=== PATIENT | male | born 1950 | race American Indian/Alaskan Native ===

== ENCOUNTER 2016-07-23 05:55 | Inpatient (IN) | payer MEDICARE ==
[2016-07-23 06:49] LABS: Basophils % (Auto) 0.5 % (0.0-1.8); Eosinophils % (Auto) 0.7 % (0.0-4.3); Hematocrit 40.8 % (35.5-45.6); Hemoglobin 13.6 gm/dl (11.8-15.2); Mean Corpuscular HGB Conc 33 % (32-34); Mean Corpuscular Hemoglobin 29 pg (28-32); Mean Corpuscular Volume 88 fl (84-94); Platelet Count 265 K/mm3 (140-440); Red Blood Count 4.67 M/mm3 (3.65-5.03); Red Cell Distribution Width 14.4 % (13.2-15.2); White Blood Count 12.3 K/mm3 (4.5-11.0)
[2016-07-23 07:08] LABS: Anion Gap 20 mmol/L; BUN/Creatinine Ratio 14.44; Blood Urea Nitrogen 13 mg/dL (9-20); Calcium 9.1 mg/dL (8.4-10.2); Carbon Dioxide 26 mmol/L (22-30); Chloride 96.8 mmol/L (98-107); Glucose 99 mg/dL (75-100); Sodium 139 mmol/L (137-145)
--- NOTE | 2016-07-23 11:20 | Emergency Department Report ---
ED Chest Pain HPI - General Chief Complaint: Chest Pain Stated Complaint: CHEST/SIDE PAIN Time Seen by Provider: 07/23/16 11:02 Source: patient Mode of arrival: Ambulatory Limitations: No Limitations - History of Present Illness MD Complaint: chest pain -: month(s) Onset: during rest Pain Location: substernal Pain Radiation: other (sometimes involves her left shoulder/upper arm) Severity: mild Severity scale (0 -10): 0 Quality: aching Consistency: intermittent Improves With: nothing Worsens With: nothing re: other (LUQ and L flank pain radiating). denies: nausea, vomting, diaphoresis, dyspnea, sense of impending doom Other Symptoms: cough. denies: fever, syncope, rash, acid taste in mouth, leg swelling Treatments Prior to Arrival: none Aspirin use within the Past 7 Days: (0) No - Related Data On Oral Contraceptives: No Home Medications Medication Instructions Recorded Confirmed Last Taken Atenolol [Tenormin] 50 mg PO DAILY 01/10/15 07/23/16 01/10/15 Verapamil [Calan] 120 mg PO TID 01/10/15 07/23/16 01/10/15 Previous Rx's Medication Instructions Recorded Last Taken Type ALBUTEROL NEB's [Proventil 0.083% 2.5 mg IH TID PRN #1 box 10/15/13 01/10/15 Rx NEBS] Albuterol Sulfate [Proventil HFA] 1 - 2 puff IH Q4H PRN #1 hfa.aer.ad 10/15/13 Unknown Rx Allergies Allergy/AdvReac Type Severity Reaction Status Date / Time No Known Allergies Allergy Unverified 10/15/13 08:38 SEBASTIEN score - Sebastien Score Age > 65: (1) Yes Aspirin use within the Past 7 Days: (0) No 3 or more CAD Risk Factors: (1) Yes 2 or more Angina events in past 24 hrs: (1) Yes Known CAD with more than 50% Stenosis: (0) No Elevated Cardiac Markers: (0) No ST Deviation Greater than 0.5mm: (0) No SEBASTIEN Score: 3 ED Review of Systems ROS: Stated complaint: CHEST/SIDE PAIN Other details as noted in HPI Constitutional: denies: chills, fever Eyes: denies: eye pain, eye discharge, vision change ENT: denies: ear pain, throat pain Respiratory: cough. denies: shortness of breath, wheezing Cardiovascular: chest pain. denies: palpitations Endocrine: no symptoms reported Gastrointestinal: denies: abdominal pain, nausea, diarrhea Genitourinary: denies: urgency, dysuria Musculoskeletal: denies: back pain, joint swelling, arthralgia Skin: denies: rash, lesions Neurological: denies: headache, weakness, paresthesias Psychiatric: denies: anxiety, depression Hematological/Lymphatic: denies: easy bleeding, easy bruising ED Past Medical Hx - Past Medical History Hx Hypertension: Yes (20+; no Beta blockers) Hx Liver Disease: No (FATTY LIVER) Hx Renal Disease: Yes (hx of kidney stones has had lithotripsy) Hx Arthritis: Yes (KNEES) Hx Kidney Stones: Yes Hx Asthma: Yes (uses inhaler) Additional medical history: gout - Family History Family history: CAD/IN - Social History Smoking Status: Former Smoker Substance Use Type: Alcohol - Medications Home Medications: Home Medications Medication Instructions Recorded Confirmed Last Taken Type ALBUTEROL NEB's [Proventil 0.083% 2.5 mg IH TID PRN #1 box 10/15/13 07/23/1612/18 Rx NEBS] Albuterol Sulfate [Proventil HFA] 1 - 2 puff IH Q4H PRN #1 hfa.aer.ad 10/15/13 07/23/16 Unknown Rx Atenolol [Tenormin] 50 mg PO DAILY 01/10/15 07/23/16 01/10/15 History Verapamil [Calan] 120 mg PO TID 01/10/15 07/23/16 01/10/15 History ED Physical Exam - General Limitations: No Limitations General appearance: alert, in no apparent distress - Head Head exam: Present: atraumatic, normocephalic - Eye Eye exam: Present: normal appearance. Absent: scleral icterus - ENT ENT exam: Present: normal exam, mucous membranes moist - Neck Neck exam: Present: normal inspection - Respiratory Respiratory exam: Present: normal lung sounds bilaterally. Absent: respiratory distress - Cardiovascular Cardiovascular Exam: Present: regular rate, normal rhythm. Absent: systolic murmur, diastolic murmur, rubs, gallop - GI/Abdominal GI/Abdominal exam: Present: soft, normal bowel sounds. Absent: distended, tenderness, guarding, rebound, rigid - Rectal Rectal exam: Present: deferred - Extremities Exam Extremities exam: Present: normal inspection - Back Exam Back exam: Present: normal inspection - Neurological Exam Neurological exam: Present: alert, oriented X3, CN II-XII intact. Absent: motor sensory deficit - Psychiatric Psychiatric exam: Present: normal affect, normal mood - Skin Skin exam: Present: warm, dry, intact, normal color. Absent: rash ED Course Vital Signs 07/23/16 07/23/16 07/23/16 06:12 10:22 10:26 Temperature 98.1 F 98.8 F Pulse Rate 81 78 80 Respiratory 20 16 Rate Blood Pressure 139/89 Blood Pressure 163/94 [Left] O2 Sat by Pulse 98 97 Oximetry 07/23/16 07/23/16 07/23/16 10:30 10:40 10:50 Temperature Pulse Rate 78 76 75 Respiratory 22 23 19 Rate Blood Pressure 154/93 154/93 159/93 Blood Pressure [Left] O2 Sat by Pulse 100 Oximetry 07/23/16 07/23/16 07/23/16 11:00 11:10 11:11 Temperature Pulse Rate 76 79 75 Respiratory 22 20 Rate Blood Pressure 158/91 158/91 Blood Pressure [Left] O2 Sat by Pulse Oximetry 07/23/16 07/23/16 11:20 11:30 Temperature Pulse Rate 79 82 Respiratory 17 25 H Rate Blood Pressure 152/91 148/91 Blood Pressure [Left] O2 Sat by Pulse Oximetry - Reevaluation(s) Reevaluation #1: Discussed CT findings with Dr. Hassan. He is confident this is pancreatitis. He went to consider anything else on the differential. Patient continues to be clinically stable. He is admitted by Dr. Chavez for further care and evaluation. 07/23/16 15:03 ED Medical Decision Making - Lab Data Result diagrams: 07/23/16 06:33 07/23/16 06:33 Laboratory Results - last 24 hr 07/23/16 07/23/16 07/23/16 06:33 06:33 09:26 WBC 12.3 H RBC 4.67 Hgb 13.6 Hct 40.8 MCV 88 MCH 29 MCHC 33 RDW 14.4 Plt Count 265 Lymph % (Auto) 22.4 Bureau % (Auto) 6.7 Eos % (Auto) 0.7 Baso % (Auto) 0.5 Lymph # 2.8 Bureau # 0.8 Eos # 0.1 Baso # 0.1 Seg Neutrophils % 69.7 Seg Neutrophils # 8.6 H Sodium 139 Potassium 4.0 Chloride 96.8 L Carbon Dioxide 26 Anion Gap 20 BUN 13 Creatinine 0.9 Estimated GFR > 60 BUN/Creatinine Ratio 14.44 Glucose 99 Calcium 9.1 Troponin T < 0.010 < 0.010 Laboratory Results - last 24 hr 07/23/16 07/23/16 07/23/16 06:33 06:33 09:26 WBC 12.3 H RBC 4.67 Hgb 13.6 Hct 40.8 MCV 88 MCH 29 MCHC 33 RDW 14.4 Plt Count 265 Lymph % (Auto) 22.4 Bureau % (Auto) 6.7 Eos % (Auto) 0.7 Baso % (Auto) 0.5 Lymph # 2.8 Bureau # 0.8 Eos # 0.1 Baso # 0.1 Seg Neutrophils % 69.7 Seg Neutrophils # 8.6 H Sodium 139 Potassium 4.0 Chloride 96.8 L Carbon Dioxide 26 Anion Gap 20 BUN 13 Creatinine 0.9 Estimated GFR > 60 BUN/Creatinine Ratio 14.44 Glucose 99 Calcium 9.1 Troponin T < 0.010 < 0.010 Laboratory Results - last 24 hr 07/23/16 07/23/16 07/23/16 06:33 06:33 09:26 WBC 12.3 H RBC 4.67 Hgb 13.6 Hct 40.8 MCV 88 MCH 29 MCHC 33 RDW 14.4 Plt Count 265 Lymph % (Auto) 22.4 Bureau % (Auto) 6.7 Eos % (Auto) 0.7 Baso % (Auto) 0.5 Lymph # 2.8 Bureau # 0.8 Eos # 0.1 Baso # 0.1 Seg Neutrophils % 69.7 Seg Neutrophils # 8.6 H Sodium 139 Potassium 4.0 Chloride 96.8 L Carbon Dioxide 26 Anion Gap 20 BUN 13 Creatinine 0.9 Estimated GFR > 60 BUN/Creatinine Ratio 14.44 Glucose 99 Calcium 9.1 Troponin T < 0.010 < 0.010 Lipase Urine Color Urine Turbidity Urine pH Ur Specific [place] Urine Protein Urine Glucose (UA) Urine Ketones Urine Blood Urine Nitrite Urine Bilirubin Urine Urobilinogen Ur Leukocyte Esterase Urine WBC (Auto) Urine RBC (Auto) U Epithel Cells (Auto) Urine Mucus 07/23/16 07/23/16 07/23/16 12:12 12:56 Unknown WBC RBC Hgb Hct MCV MCH MCHC RDW Plt Count Lymph % (Auto) Bureau % (Auto) Eos % (Auto) Baso % (Auto) Lymph # Bureau # Eos # Baso # Seg Neutrophils % Seg Neutrophils # Sodium Potassium Chloride Carbon Dioxide Anion Gap BUN Creatinine Estimated GFR BUN/Creatinine Ratio Glucose Calcium Troponin T < 0.010 Lipase 80 H Urine Color Yellow Urine Turbidity Clear Urine pH 5.0 Ur Specific Sinclair 1.023 Urine Protein <15 mg/dl Urine Glucose (UA) Neg Urine Ketones Neg Urine Blood Sm Urine Nitrite Neg Urine Bilirubin Neg Urine Urobilinogen < 2.0 Ur Leukocyte Esterase Neg Urine WBC (Auto) < 1.0 Urine RBC (Auto) 3.0 U Epithel Cells (Auto) < 1.0 Urine Mucus 2+ - EKG Data -: EKG Interpreted by Me EKG shows normal: sinus rhythm, axis, intervals, QRS complexes, ST-T waves Rate: normal - EKG Data Interpretation: no acute changes - Radiology Data Radiology results: report reviewed interpreted by me: Discussed with radiologist. Pancreatitis of the tail pancreas. Critical care attestation.: If time is entered above; I have spent that time in minutes in the direct care of this critically ill patient, excluding procedure time. ED Disposition Clinical Impression: Pancreatitis Qualifiers: Chronicity: acute Pancreatitis type: other Acute pancreatitis complication: unspecified Qualified Code(s): K85.80 - Other acute pancreatitis without necrosis or infection Disposition: OP ADMITTED IP TO THIS HOSP Is pt being admited?: Yes Does the pt Need Aspirin: Yes Condition: Stable Referrals: PRIMARY CARE, [Primary Care Provider] - 3-5 Days Time of Disposition: 15:07
[2016-07-23] MEDS ORDERED: TORADOL IV ONE (11:26)
--- NOTE | 2016-07-23 13:00 | Cat Scan Report ---
CT ABDOMEN AND PELVIS WITHOUT CONTRAST INDICATION: Left flank pain. History of kidney stones. COMPARISON: None similar. FINDINGS: Noncontrast abdomen and pelvis CT performed. LUNG BASES: Nonspecific distal esophageal wall thickening, not excluded for gastroesophageal reflux and/or hiatal hernia, amongst others. Slight increased AP chest diameter and subtle groundglass opacities/dependent atelectasis at the extreme right lung base, axial series 2, image 41. No effusions. ABDOMEN: Please note that sensitivity to detect small visceral lesions is limited due to the absence of intravenous or oral contrast. Diffuse fatty hepatic infiltration with right hepatic lobe approximately 20 cm in midclavicular length. Small right hepatic calcified granuloma. Nonobstructing bilateral renal calculi, at least 2 tiny on the right inferiorly measuring 2-3 mm while a large left lower renal pole calculus is approximately 1.5 cm. Mild fat stranding about the pancreatic tail also seen. No focal fluid collection. Small splenule. Otherwise grossly unremarkable unenhanced liver, spleen, remainder pancreas, adrenals, nonaneurysmal abdominal aorta with few atherosclerotic calcifications and IVC. Nonopacified GI tract evaluation limited, though grossly nonobstructive. Normal appendix. Usual colonic stool. PELVIS: Slightly enlarged prostate may be correlated for clinically and with PSA. Few small pelvic phleboliths and a tiny midline prostatic calcification noted. Grossly unremarkable unenhanced urinary bladder, seminal vesicles and rectosigmoid. No free fluid or significant adenopathy. Slight bony degenerative changes. CONCLUSION: 1. Acute pancreatitis suspected involving the pancreatic tail, as described. Please also correlate clinically and with laboratory values. 2. Various other incidental findings, including fatty enlarged liver and nonobstructing bilateral nephrolithiasis, amongst others, as described. Thank you for the opportunity to participate in this patient's care.
[2016-07-23 13:13] LABS: Bilirubin,Urine NEG (Negative); Blood,Urine SM (Negative); Ketones,Urine NEG (Negative); Leukocyte Esterase,Urine NEG (Negative); Mucus,Urine 2+ /HPF; Nitrite,Urine NEG (Negative); Protein,Urine <15 mg/dL mg/dL (Negative); Urobilinogen,Urine < 2.0 mg/dL (<2.0); WBC,Urine < 1.0 /HPF (0.0-6.0)
--- NOTE | 2016-07-23 13:22 | Admit Criteria Form ---
Admission Criteria Documentation: PANCREATITIS Clinical Indications for Admission to Inpatient Care (Place 'X' for any and all applicable criteria): Admission is indicated for ANY ONE of the following (1)(2)(3)(4): [X ]I. Acute pancreatitis[A] as indicated by 2 or more of the following: [ X]a) Abdominal pain (eg, epigastric, left upper quadrant) [ ]b) Serum amylase or serum lipase greater than 3 times the upper limit of normal [X ]c) Characteristic findings from abdominal imaging (eg, pancreatic inflammation, pancreatic necrosis, peripancreatic fluid collection)[B] [ ]II. Pancreatitis (acute or chronic) requiring inpatient care as indicated by 1 or more of the following: [ ]a) Inability to maintain oral hydration Hypoxemia [ ]b) Evidence of infection (eg, fever, peripancreatic abscess) [ ]c) Severe pain requiring acute inpatient management [ ]d) Hemodynamic instability [ ]e) Hypoxemia [ ]f) Acute renal failure [ ]g) Severe electrolyte abnormalities Extended stay beyond goal length of stay may be needed for (1)(11) [ ]a) Severe acute pancreatitis (10)(19) [ ]b) Persistent symptoms, ascites, or pleural effusion [ ]c) Abdominal compartment syndrome (10) [ ]d) Late complications [ ]e) Acute renal failure (27) [ ]f) Gallstones in gallbladder The original [employer] content created by [employer] has been revised. The portions of the content which have been revised are identified through the use of italic text or in bold,and [facility] has neither reviewed nor approved the modified material.All other unmodified content is copyright [employer]. Please see references footnoted in the original [employer] edition 2016 Admission Criteria Met: Yes
--- NOTE | 2016-07-23 14:14 | XRay Report ---
PORTABLE CHEST: INDICATION: Hypertension. COMPARISON: 10/15/2013 FINDINGS: Portable, frontal chest radiograph again demonstrates normal cardiomediastinal silhouette and clear lungs. Thoracic spondylosis. EKG leads. CONCLUSION: No acute disease in the chest, stable. Thank you for the opportunity to participate in this patient's care.
--- NOTE | 2016-07-23 15:03 | History and Physical Report ---
History of Present Illness Date of examination: 07/23/16 History of present illness: 66-year-old male presents to Hospital complaining of chest pain left upper quadrant pain, epigastric pain. Patient stated started light about 3 days ago, but progressively got worse. Patient denies any nausea vomiting diarrhea. Patient denies any blood in his stools. Patient states there had an episode like this before. He described abdominal pain as sharp in nature and nonradiating on and off. No alleviating factors. Patient state is aggravated by eating food. She denies any palpitation no fever no chills Past History Past Medical History: hypertension Medications and Allergies Allergies Allergy/AdvReac Type Severity Reaction Status Date / Time No Known Allergies Allergy Unverified 10/15/13 08:38 Home Medications Medication Instructions Recorded Confirmed Last Taken Type ALBUTEROL NEB's [Proventil 0.083% 2.5 mg IH TID PRN #1 box 10/15/13 07/23/1612/18 Rx NEBS] Albuterol Sulfate [Proventil HFA] 1 - 2 puff IH Q4H PRN #1 hfa.aer.ad 10/15/13 07/23/16 Unknown Rx Atenolol [Tenormin] 50 mg PO DAILY 01/10/15 07/23/16 01/10/15 History Verapamil [Calan] 120 mg PO TID 01/10/15 07/23/16 01/10/15 History Review of Systems Cardiovascular: chest pain Gastrointestinal: abdominal pain Exam - Constitutional Vitals: Temp Pulse Resp BP Pulse Ox 98.8 F 82 25 H 148/91 100 07/23/16 10:22 07/23/16 11:30 07/23/16 11:30 07/23/16 11:30 07/23/16 10:40 General appearance: Present: mild distress - EENT Eyes: Present: PERRL, EOM intact ENT: hearing intact, clear oral mucosa - Neck Neck: Present: supple, normal ROM - Respiratory Respiratory effort: normal Respiratory: bilateral: CTA - Cardiovascular Rhythm: regular Heart Sounds: Present: S1 & S2 - Extremities Extremities: no ischemia, No edema - Abdominal General gastrointestinal: Present: soft, tender, non-distended, normal bowel sounds Localized gastrointestinal: tender: LUQ, epigastric periumbilical Results - Labs CBC & Chem 7: 07/23/16 06:33 02/17/17 06:33 Labs: Laboratory Last Values WBC 12.3 K/mm3 (4.5-11.0) H 07/23/16 06:33 RBC 4.67 M/mm3 (3.65-5.03) 07/23/16 06:33 Hgb 13.6 gm/dl (11.8-15.2) 07/23/16 06:33 Hct 40.8 % (35.5-45.6) 07/23/16 06:33 MCV 88 fl (84-94) 07/23/16 06:33 MCH 29 pg (28-32) 07/23/16 06:33 MCHC 33 % (32-34) 07/23/16 06:33 RDW 14.4 % (13.2-15.2) 07/23/16 06:33 Plt Count 265 K/mm3 (140-440) 07/23/16 06:33 Lymph % (Auto) 22.4 % (13.4-35.0) 07/23/16 06:33 [place]alier % (Auto) 6.7 % (0.0-7.3) 07/23/16 06:33 Eos % (Auto) 0.7 % (0.0-4.3) 07/23/16 06:33 Baso % (Auto) 0.5 % (0.0-1.8) 07/23/16 06:33 Lymph # 2.8 K/mm3 (1.2-5.4) 07/23/16 06:33 Cavalier # 0.8 K/mm3 (0.0-0.8) 07/23/16 06:33 Eos # 0.1 K/mm3 (0.0-0.4) 07/23/16 06:33 Baso # 0.1 K/mm3 (0.0-0.1) 07/23/16 06:33 Seg Neutrophils % 69.7 % (40.0-70.0) 07/23/16 06:33 Seg Neutrophils # 8.6 K/mm3 (1.8-7.7) H 07/23/16 06:33 Sodium 139 mmol/L (137-145) 07/23/16 06:33 Potassium 4.0 mmol/L (3.6-5.0) 07/23/16 06:33 Chloride 96.8 mmol/L (98-107) L 07/23/16 06:33 Carbon Dioxide 26 mmol/L (22-30) 07/23/16 06:33 Anion Gap 20 mmol/L 07/23/16 06:33 BUN 13 mg/dL (9-20) 07/23/16 06:33 Creatinine 0.9 mg/dL (0.8-1.5) 07/23/16 06:33 Estimated GFR > 60 ml/min 07/23/16 06:33 BUN/Creatinine Ratio 14.44 % 07/23/16 06:33 Glucose 99 mg/dL (75-100) 07/23/16 06:33 Calcium 9.1 mg/dL (8.4-10.2) 07/23/16 06:33 Troponin T < 0.010 ng/mL (0.00-0.029) 07/23/16 12:12 Lipase 80 units/L (13-60) H 07/23/16 12:56 Urine Color Yellow (Yellow) 07/23/16 Unknown Urine Turbidity Clear (Clear) 07/23/16 Unknown Urine pH 5.0 (5.0-7.0) 07/23/16 Unknown Ur Specific [place] 1.023 (1.003-1.030) 07/23/16 Unknown Urine Protein <15 mg/dl mg/dL (Negative) 07/23/16 Unknown Urine Glucose (UA) Neg mg/dL (Negative) 07/23/16 Unknown Urine Ketones Neg mg/dL (Negative) 07/23/16 Unknown Urine Blood Sm (Negative) 07/23/16 Unknown Urine Nitrite Neg (Negative) 07/23/16 Unknown Urine Bilirubin Neg (Negative) 07/23/16 Unknown Urine Urobilinogen < 2.0 mg/dL (<2.0) 07/23/16 Unknown Ur Leukocyte Esterase Neg (Negative) 07/23/16 Unknown Urine WBC (Auto) < 1.0 /HPF (0.0-6.0) 07/23/16 Unknown Urine RBC (Auto) 3.0 /HPF (0.0-6.0) 07/23/16 Unknown U Epithel Cells (Auto) < 1.0 /HPF (0-13.0) 07/23/16 Unknown Urine Mucus 2+ /HPF 02/17/17 Unknown Assessment and Plan - Patient Problems (1) Pancreatitis Current Visit: Yes Status: Acute Qualifiers: Chronicity: acute Pancreatitis type: other Acute pancreatitis complication: unspecified Qualified Code(s): K85.80 - Other acute pancreatitis without necrosis or infection Plan to address problem: Patient CT scan the abdomen which showed acute pancreatitis of the pancreatic tail. Patient will be placed on bowel rest IV fluid hydration adequate pain control. Patient also will be placed on IV PPI (2) GERD (gastroesophageal reflux disease) Current Visit: No Status: Acute Qualifiers: Esophagitis presence: E
[2016-07-23] MEDS ORDERED: ZOFRAN IV PRN (15:04)
[2016-07-23] MEDS ORDERED: TYLENOL PO PRN (15:04)
[2016-07-23] MEDS ORDERED: DULCOLAX PR PRN (15:04)
[2016-07-23] MEDS ORDERED: MILK OF MAGNESIA PO PRN (15:04)
[2016-07-23] MEDS ORDERED: MORPHINE IV PRN (15:04)
[2016-07-23] MEDS ORDERED: BABY ASPIRIN PO ONE (15:08)
--- NOTE | 2016-07-23 15:11 | Emergency Department Report ---
Blank Doc - Documentation Documentation: EKG normal sinus rhythm at 77. Normal axis normal repolarization Chest x-ray no acute process
[2016-07-23] MEDS ORDERED: LOVENOX SUB-Q SCH ×2 (16:00)
[2016-07-23] MEDS: LOVENOX SUB-Q SCH (17:08)
[2016-07-23] MEDS: D5NS 1,000 ML IV SCH (17:09)
[2016-07-23] MEDS: PROTONIX IV SCH (21:51)
[2016-07-24] MEDS: D5NS 1,000 ML IV SCH ×2 (00:51→09:42)
[2016-07-24 06:50] LABS: Basophils % (Auto) 0.5 % (0.0-1.8); Eosinophils % (Auto) 1.5 % (0.0-4.3); Hematocrit 36.2 % (35.5-45.6); Mean Corpuscular HGB Conc 33 % (32-34); Mean Corpuscular Hemoglobin 29 pg (28-32); Mean Corpuscular Volume 88 fl (84-94); Platelet Count 207 K/mm3 (140-440); Red Blood Count 4.12 M/mm3 (3.65-5.03); Red Cell Distribution Width 14.1 % (13.2-15.2)
[2016-07-24 07:21] LABS: Alanine Aminotransferase 40 units/L (7-56); Albumin 3.3 g/dL (3.9-5); Albumin/Globulin Ratio 1.4 %; Alkaline Phosphatase 76 units/L (35-129); Anion Gap 16 mmol/L; BUN/Creatinine Ratio 5.71; Bilirubin,Total 1.2 mg/dL (0.1-1.2); Blood Urea Nitrogen 4 mg/dL (9-20); Calcium 8.4 mg/dL (8.4-10.2); Carbon Dioxide 27 mmol/L (22-30); Chloride 99.2 mmol/L (98-107); Glucose 119 mg/dL (75-100); Potassium 3.3 mmol/L (3.6-5.0); Sodium 139 mmol/L (137-145); Total Protein 5.7 g/dL (6.3-8.2)
[2016-07-24] MEDS ORDERED: ATIVAN IV PRN ×2 (07:43)
[2016-07-24 08:15] LABS: Magnesium 1.8 mg/dL (1.7-2.3); Phosphorous 2.4 mg/dL (2.5-4.5)
[2016-07-24] MEDS: FOLVITE PO SCH (09:42)
[2016-07-24] MEDS: PROTONIX IV SCH (09:43)
[2016-07-24] MEDS: VITAMIN B-1 PO SCH (09:44)
--- NOTE | 2016-07-24 11:12 | Gastroenterology Consultation ---
History of Present Illness - Reason for Consult Consult date: 07/24/16 Pancreatitis Requesting physician: STEVEN CARBAJAL - History of Present Illness The patient is a 66 yo male who came to the hospital for acute (3 day) onset of periumbilical and epigastric pain radiating to the LUQ. There was no V but there was N. He had never had pain like this before, and it was moderate in severity (but better after morphine in the ER). He was dx with pancreatitis based on labs and CT scan findings, but mild degree. There was no hematemesis nor melena. He does use a lot of EtOH (5 or more beers daily) and had an enlarged fatty liver on his CT scan. There is no hx of pancreatitis in the past. He has a hx of kidney but no gallbladder stones, nor is there a family hx of pancreatitis or GB disease. He has had no abdominal surgery, and denies any new medications. He takes occasional NSAIDs, but has not had PUD, and his last colonoscopy was by Dr Cruz or Anish a few years ago (and normal). Today , he wants to try a liquid diet because he feels better. He denies CP or SOB with exertion. Past History Past Medical History: COPD, hypertension Past Surgical History: No surgical history Social history: smoking, alcohol abuse Family history: no significant family history Medications and Allergies Allergies Allergy/AdvReac Type Severity Reaction Status Date / Time No Known Allergies Allergy Unverified 10/15/13 08:38 Home Medications Medication Instructions Recorded Confirmed Last Taken Type ALBUTEROL NEB's [Proventil 0.083% 2.5 mg IH TID PRN #1 box 10/15/13 07/23/1612/18 Rx NEBS] Albuterol Sulfate [Proventil HFA] 1 - 2 puff IH Q4H PRN #1 hfa.aer.[email or web address] 10/15/13 07/23/16 Unknown Rx Atenolol [Tenormin] 50 mg PO DAILY 01/10/15 07/23/16 01/10/15 History Verapamil [Calan] 120 mg PO TID 01/10/15 07/23/16 01/10/15 History Active Meds: Active Medications Acetaminophen (Tylenol) 650 mg PO Q4H PRN PRN Reason: Pain MILD(1-3)/Fever >100.5/MCCLURE Bisacodyl (Dulcolax) 10 mg TN QDAY PRN PRN Reason: Constipation unrelieved by MOM Enoxaparin Sodium (Lovenox) 40 mg SUB-Q QDAY@1600 [facility] Last Admin: 07/23/16 17:08 Dose: 40 mg Folic Acid (Folvite) 1 mg PO QDAY [facility] Last Admin: 07/24/16 09:42 Dose: 1 mg Dextrose/Sodium Chloride (D5ns) 1,000 mls @ 125 mls/hr IV DIRECT [facility] Last Admin: 07/24/16 09:42 Dose: 125 mls/hr Lorazepam (Ativan) 2 mg IV Q1HR PRN PRN Reason: CIWA-Ar 8-15 Lorazepam (Ativan) 4 mg IV Q1HR PRN PRN Reason: CIWA-Ar 16-25 Magnesium Hydroxide (Milk Of Magnesia) 30 ml PO Q4H PRN PRN Reason: Constipation Morphine Sulfate (Morphine) 2 mg IV Q4H PRN PRN Reason: Pain, Moderate (4-6) Last Admin: 07/23/16 17:08 Dose: 2 mg Ondansetron HCl (Zofran) 4 mg IV Q8H PRN PRN Reason: N/V unrelieved by Reglan Pantoprazole Sodium (Protonix) 40 mg PO QDAY [facility] Thiamine HCl (Vitamin B-1) 100 mg PO QDAY [facility] Last Admin: 07/24/16 09:44 Dose: 100 mg Review of Systems - Review of Systems All systems: negative (as noted in the HPI) Exam - Constitutional Vital Signs: Temp Pulse Resp BP Pulse Ox 98.3 F 77 18 164/87 98 07/24/16 08:00 07/24/16 08:00 07/24/16 08:00 07/24/16 08:00 07/24/16 08:00 General appearance: no acute distress - EENT Eyes: PERRL, EOM intact ENT: hearing intact, poor dentition, no thrush - Neck Neck: supple, normal ROM - Respiratory Respiratory effort: normal Respiratory: bilateral: CTA - Cardiovascular Rhythm: regular Heart Sounds: Present: S1 & S2 Extremities: no ischemia, No edema - Gastrointestinal General gastrointestinal: Present: soft, tender (Mild LUQ and periumbilical tenderness; no guard or rebound), non-distended - Integumentary Integumentary: Present: clear, warm, dry - Neurologic Neurological: alert and oriented x3 - Psychiatric Psychiatric: appropriate mood/affect - Labs CBC & Chem 7: 07/24/16 06:09 07/24/16 06:09 Lab Results: Laboratory Results - last 24 hr 07/23/16 07/24/16 07/24/16 Unknown 06:00 06:00 WBC RBC Hgb Hct MCV MCH MCHC RDW Plt Count Lymph % (Auto) [place] % (Auto) Eos % (Auto) Baso % (Auto) Lymph # [place] # Eos # Baso # Seg Neutrophils % Seg Neutrophils # Sodium Potassium Chloride Carbon Dioxide Anion Gap BUN Creatinine Estimated GFR BUN/Creatinine Ratio Glucose Calcium Phosphorus 2.4 L Magnesium 1.8 Total Bilirubin AST ALT Alkaline Phosphatase Total Protein Albumin Albumin/Globulin Ratio Lipase 60 Urine Color Yellow Urine Turbidity Clear Urine pH 5.0 Ur Specific [place] 1.023 Urine Protein <15 mg/dl Urine Glucose (UA) Neg Urine Ketones Neg Urine Blood Sm Urine Nitrite Neg Urine Bilirubin Neg Urine Urobilinogen < 2.0 Ur Leukocyte Esterase Neg Urine WBC (Auto) < 1.0 Urine RBC (Auto) 3.0 U Epithel Cells (Auto) < 1.0 Urine Mucus 2+ 07/24/16 07/24/16 06:09 06:09 WBC 9.0 RBC 4.12 Hgb 12.0 Hct 36.2 MCV 88 MCH 29 MCHC 33 RDW 14.1 Plt Count 207 Lymph % (Auto) 24.4 [place] % (Auto) 6.6 Eos % (Auto) 1.5 Baso % (Auto) 0.5 Lymph # 2.2 [place] # 0.6 Eos # 0.1 Baso # 0.0 Seg Neutrophils % 67.0 Seg Neutrophils # 6.0 Sodium 139 Potassium 3.3 L Chloride 99.2 Carbon Dioxide 27 Anion Gap 16 BUN 4 L Creatinine 0.7 L Estimated GFR > 60 BUN/Creatinine Ratio 5.71 Glucose 119 H Calcium 8.4 Phosphorus Magnesium Total Bilirubin 1.2 AST 38 ALT 40 Alkaline Phosphatase 76 Total Protein 5.7 L Albumin 3.3 L Albumin/Globulin Ratio 1.4 Lipase Urine Color Urine Turbidity Urine pH Ur Specific [place] Urine Protein Urine Glucose (UA) Urine Ketones Urine Blood Urine Nitrite Urine Bilirubin Urine Urobilinogen Ur Leukocyte Esterase Urine WBC (Auto) Urine RBC (Auto) U Epithel Cells (Auto) Urine Mucus Assessment and Plan - Patient Problems (1) Pancreatitis Current Visit: Yes Status: Acute Qualifiers: Chronicity: acute Pancreatitis type: other Acute pancreatitis complication: unspecified Qualified Code(s): K85.80 - Other acute pancreatitis without necrosis or infection Plan to address problem: - Given fatty liver and EtOH abuse, I suspect acute alcoholic pancreatitis, but mild (normal WBC today, normal AST, normal creatinine). - Agree with MVI therapy, and will advance to full liquid diet. - Continue CIWA protocol. - RUQ US to make sure no gallstones, since original CT was noncontrast. - Encourage ambulation. - CT with IV/PO contrast repeat if patient regresses. (2) Alcohol abuse Current Visit: Yes Status: Acute Plan to address problem: - Continue MVI and CIWA protocol.
[2016-07-24] MEDS: THERAGRAN Tab PO SCH (12:44)
--- NOTE | 2016-07-24 12:59 | Progress Note ---
Assessment and Plan Assessment and plan: 1. Acute alcoholic pancreatitis-improving, I agree with starting full liquids and advancing diet as tolerated. Continue thiamine and folic acid. Continue IV fluids. IV narcotics as needed for pain or GI consult appreciated. 2. Mild hypokalemia-replace with oral potassium supplementation. Mild hypophosphatemiawill replace With IV supplementation 3. Alcohol abuse-initiate CIWA protocol. Patient has been counseled 4. DVT prophylaxis-Lovenox History Interval history: f/u for acute pancreatitis seen on the bedside, he has no pain. No vomiting Hospitalist Physical - Constitutional Vitals: Temp Pulse Resp BP Pulse Ox 98.3 F 77 18 164/87 98 07/24/16 08:00 07/24/16 08:00 07/24/16 08:00 07/24/16 08:00 07/24/16 08:00 General appearance: Present: no acute distress, well-nourished - EENT Eyes: Present: PERRL, EOM intact. Absent: scleral icterus, conjunctival injection ENT: hearing intact, clear oral mucosa, no oropharyngeal erythema, no poor dentition - Neck Neck: Present: supple, normal ROM. Absent: enlarged thyroid, masses or JVD - Respiratory Respiratory effort: normal Respiratory: negative: diminished, rales, rhonchi, wheezing - Cardiovascular Rhythm: regular Heart Sounds: Present: S1 & S2. Absent: gallop - Extremities Extremities: no ischemia, pulses intact, pulses symmetrical, No edema Peripheral Pulses: within normal limits - Abdominal General gastrointestinal: soft, tender (mildly tender), non-distended, normal bowel sounds - Integumentary Integumentary: Present: clear, warm - Psychiatric Psychiatric: appropriate mood/affect, intact judgment & insight, cooperative - Neurologic Neurologic: CNII-XII intact, moves all extremities Results - Labs CBC & Chem 7: 07/24/16 06:09 07/24/16 06:09 Labs: Laboratory Last Values WBC 9.0 K/mm3 (4.5-11.0) 07/24/16 06:09 RBC 4.12 M/mm3 (3.65-5.03) 07/24/16 06:09 Hgb 12.0 gm/dl (11.8-15.2) 07/24/16 06:09 Hct 36.2 % (35.5-45.6) 07/24/16 06:09 MCV 88 fl (84-94) 07/24/16 06:09 MCH 29 pg (28-32) 07/24/16 06:09 MCHC 33 % (32-34) 07/24/16 06:09 RDW 14.1 % (13.2-15.2) 07/24/16 06:09 Plt Count 207 K/mm3 (140-440) 07/24/16 06:09 Lymph % (Auto) 24.4 % (13.4-35.0) 07/24/16 06:09 [place] % (Auto) 6.6 % (0.0-7.3) 07/24/16 06:09 Eos % (Auto) 1.5 % (0.0-4.3) 07/24/16 06:09 Baso % (Auto) 0.5 % (0.0-1.8) 07/24/16 06:09 Lymph # 2.2 K/mm3 (1.2-5.4) 07/24/16 06:09 [place] # 0.6 K/mm3 (0.0-0.8) 07/24/16 06:09 Eos # 0.1 K/mm3 (0.0-0.4) 07/24/16 06:09 Baso # 0.0 K/mm3 (0.0-0.1) 07/24/16 06:09 Seg Neutrophils % 67.0 % (40.0-70.0) 07/24/16 06:09 Seg Neutrophils # 6.0 K/mm3 (1.8-7.7) 07/24/16 06:09 Sodium 139 mmol/L (137-145) 07/24/16 06:09 Potassium 3.3 mmol/L (3.6-5.0) L 07/24/16 06:09 Chloride 99.2 mmol/L (98-107) 07/24/16 06:09 Carbon Dioxide 27 mmol/L (22-30) 07/24/16 06:09 Anion Gap 16 mmol/L 07/24/16 06:09 BUN 4 mg/dL (9-20) L 07/24/16 06:09 Creatinine 0.7 mg/dL (0.8-1.5) L 07/24/16 06:09 Estimated GFR > 60 ml/min 07/24/16 06:09 BUN/Creatinine Ratio 5.71 % 07/24/16 06:09 Glucose 119 mg/dL (75-100) H 07/24/16 06:09 Calcium 8.4 mg/dL (8.4-10.2) 07/24/16 06:09 Phosphorus 2.4 mg/dL (2.5-4.5) L 07/24/16 06:00 Magnesium 1.8 mg/dL (1.7-2.3) 07/24/16 06:00 Total Bilirubin 1.2 mg/dL (0.1-1.2) 07/24/16 06:09 AST 38 units/L (5-40) 07/24/16 06:09 ALT 40 units/L (7-56) 07/24/16 06:09 Alkaline Phosphatase 76 units/L (35-129) 07/24/16 06:09 Troponin T < 0.010 ng/mL (0.00-0.029) 07/23/16 12:12 Total Protein 5.7 g/dL (6.3-8.2) L 07/24/16 06:09 Albumin 3.3 g/dL (3.9-5) L 07/24/16 06:09 Albumin/Globulin Ratio 1.4 % 07/24/16 06:09 Lipase 60 units/L (13-60) 07/24/16 06:00 Urine Color Yellow (Yellow) 07/23/16 Unknown Urine Turbidity Clear (Clear) 07/23/16 Unknown Urine pH 5.0 (5.0-7.0) 07/23/16 Unknown Ur Specific [place] 1.023 (1.003-1.030) 07/23/16 Unknown Urine Protein <15 mg/dl mg/dL (Negative) 07/23/16 Unknown Urine Glucose (UA) Neg mg/dL (Negative) 07/23/16 Unknown Urine Ketones Neg mg/dL (Negative) 07/23/16 Unknown Urine Blood Sm (Negative) 07/23/16 Unknown Urine Nitrite Neg (Negative) 07/23/16 Unknown Urine Bilirubin Neg (Negative) 07/23/16 Unknown Urine Urobilinogen < 2.0 mg/dL (<2.0) 07/23/16 Unknown Ur Leukocyte Esterase Neg (Negative) 07/23/16 Unknown Urine WBC (Auto) < 1.0 /HPF (0.0-6.0) 07/23/16 Unknown Urine RBC (Auto) 3.0 /HPF (0.0-6.0) 07/23/16 Unknown U Epithel Cells (Auto) < 1.0 /HPF (0-13.0) 07/23/16 Unknown Urine Mucus 2+ /HPF 07/23/[address] scan of the abdomen and pelvis-acute pancreatitis suspected involving the pancreatic tail. Fatty enlarged liver
[2016-07-24] MEDS ORDERED: SODIUM PHOSPHATE 30 MMOL in NACL 0.9% 500 ML 500 ML IV ONE (13:02)
[2016-07-24] MEDS: LOVENOX SUB-Q SCH (16:30)
[2016-07-25 07:24] LABS: Anion Gap 18 mmol/L; BUN/Creatinine Ratio 3.75; Blood Urea Nitrogen 3 mg/dL (9-20); Carbon Dioxide 27 mmol/L (22-30); Chloride 97.8 mmol/L (98-107); Glucose 115 mg/dL (75-100); Phosphorous 2.9 mg/dL (2.5-4.5); Potassium 3.5 mmol/L (3.6-5.0); Sodium 139 mmol/L (137-145)
[2016-07-25] MEDS ORDERED: K-DUR PO ONE (09:06)
[2016-07-25 09:14] VITALS: BP 147/88
[2016-07-25 09:41] LABS: Albumin 3.7 g/dL (3.9-5); Albumin/Globulin Ratio 1.2 %; Bilirubin,Direct 0.2 mg/dL (0-0.2); Bilirubin,Indirect 0.6 mg/dL; Bilirubin,Total 0.8 mg/dL (0.1-1.2); Total Protein 6.9 g/dL (6.3-8.2)
--- NOTE | 2016-07-25 09:52 | Ultrasound Report ---
Sonogram right upper quadrant: History: Pancreatitis. Findings: Normal aorta. Fatty liver. No intrahepatic duct dilatation. Common bile duct diameter 4.4 mm. Gallbladder wall thickness 1.6 mm. No calculi in the gallbladder. Right kidney 10.7 x 5.9 x 5.7 cm. Cortical thickness 1.2 cm. No mass. No hydronephrosis. Pancreas faintly visualized and appears hypoechoic and probably suggestive of calcifications. No distinct mass is seen in the visualized portion. Impression: Fatty liver. Hyperechoic pancreas.
[2016-07-25] MEDS: VITAMIN B-1 PO SCH (10:00)
[2016-07-25] MEDS: THERAGRAN Tab PO SCH (10:00)
[2016-07-25] MEDS: FOLVITE PO SCH (10:00)
[2016-07-25] MEDS ORDERED: PROTONIX PO SCH (10:00)
--- NOTE | 2016-07-25 11:23 | Gastroenterology Progress Note ---
Assessment and Plan - Patient Problems (1) Pancreatitis Current Visit: Yes Status: Acute Qualifiers: Chronicity: acute Pancreatitis type: other Acute pancreatitis complication: unspecified Qualified Code(s): K85.80 - Other acute pancreatitis without necrosis or infection Plan to address problem: - Given fatty liver and EtOH abuse, I suspect acute alcoholic pancreatitis, but mild (normal WBC today, normal AST, normal creatinine). - Agree with MVI therapy, and will advance to regular diet. - Continue CIWA protocol. - RUQ US negative for gallstones, original CT was noncontrast but (-) for mass. - Encourage ambulation. - OK to d/c home today per our service; will sign off; please call if needed. (2) Alcohol abuse Current Visit: Yes Status: Acute Subjective Date of service: 07/25/16 Principal diagnosis: Pancreatitis Interval history: The patient feels much better today without N/V/abdominal pain. He is tolerating clear liquids and has no diarrhea/blood in stool. Objective - Constitutional Vitals: Temp Pulse Resp BP Pulse Ox 97.9 F 88 20 147/88 96 07/25/16 08:13 07/25/16 08:13 07/25/16 08:13 07/25/16 08:13 07/25/16 08:13 General appearance: no acute distress - EENT Eyes: PERRL, EOM intact ENT: hearing intact - Respiratory Respiratory effort: normal Respiratory: bilateral: CTA - Cardiovascular Rhythm: regular Heart Sounds: Present: S1 & S2 - Gastrointestinal General gastrointestinal: Present: soft, non-tender, non-distended - Labs CBC & Chem 7: 07/24/16 06:09 07/25/16 06:23 Labs: Laboratory Results - last 24 hr 07/25/16 07/25/16 06:23 06:23 Sodium 139 Potassium 3.5 L Chloride 97.8 L Carbon Dioxide 27 Anion Gap 18 BUN 3 L Creatinine 0.8 Estimated GFR > 60 BUN/Creatinine Ratio 3.75 Glucose 115 H Calcium 9.0 Phosphorus 2.9 D Total Bilirubin 0.8 Direct Bilirubin 0.2 Indirect Bilirubin 0.6 AST 57 H ALT 54 Alkaline Phosphatase 86 Total Protein 6.9 D Albumin 3.7 L Albumin/Globulin Ratio 1.2
--- NOTE | 2016-07-25 11:57 | Discharge Summary ---
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 Fatty enlarged liver Hospital course: Mr. Carr presented to the hospital with abdominal pain due to alcoholic pancreatitis; he was treated conservatively and her pain resolved and he was tolerating diet prior to being discharge; he was cleared by the [facility] consultant for discharge. Counselled about the need to stop drinking condition at discharge-stable 31 minutes spent on discharge Disposition: DISCHARGED TO HOME OR SELFCARE - Discharge Diagnoses (1) Alcohol abuse Status: Acute (2) Pancreatitis Status: Acute Qualifiers: Chronicity: acute Pancreatitis type: other Acute pancreatitis complication: unspecified Qualified Code(s): K85.80 - Other acute pancreatitis without necrosis or infection (3) GERD (gastroesophageal reflux disease) Status: Acute Qualifiers: Esophagitis presence: E Core Measure Documentation - Palliative Care Palliative Care/ Comfort Measures: Not Applicable - Core Measures Any of the following diagnoses?: none Exam - Constitutional Vitals: Temp Pulse Resp BP Pulse Ox 97.9 F 88 20 147/88 96 07/25/16 08:13 07/25/16 08:13 07/25/16 08:13 07/25/16 08:13 07/25/16 08:13 General appearance: Present: no acute distress, well-nourished - EENT Eyes: Present: PERRL, EOM intact. Absent: scleral icterus, conjunctival injection ENT: hearing intact, clear oral mucosa, no oropharyngeal erythema, no poor dentition - Neck Neck: Present: supple, normal ROM. Absent: enlarged thyroid, masses or JVD - Respiratory Respiratory effort: normal Respiratory: negative: diminished, rales, rhonchi, wheezing - Cardiovascular Rhythm: regular Heart Sounds: Present: S1 & S2. Absent: gallop - Extremities Extremities: no ischemia, pulses intact, pulses symmetrical, No edema Peripheral Pulses: within normal limits - Abdominal General gastrointestinal: Present: soft, non-tender, non-distended, normal bowel sounds Male genitourinary: Present: deferred - Rectal Rectal Exam: deferred - Integumentary Integumentary: Present: clear - Musculoskeletal Musculoskeletal: strength equal bilaterally - Psychiatric Psychiatric: appropriate mood/affect, intact judgment & insight, cooperative - Neurologic Neurologic: CNII-XII intact, moves all extremities Plan Activity: no restrictions Diet: regular Follow up with: PRIMARY CARE, [Primary Care Provider] - 3-5 Days Prescriptions: traMADol [Ultram 50 MG tab] 50 mg PO Q4HR PRN #15 tablet PRN Reason: Pain
== END 2016-07-25 14:30 | disposition home or self-care (01) | DRG 440 ==
LOC: ED 05:55 → 3A 15:04
PROVIDERS: ADMIT Internal Medicine; ATTEND Hospitalist
PROC: HZ34ZZZ Individual Counseling for Substance Abuse Treatment, Interpersonal (ICD-10-PCS; principal; 2016-07-23)
DX: K85.20 Alcohol induced acute pancreatitis without necrosis or infection (principal); I10 Essential (primary) hypertension; M19.90 Unspecified osteoarthritis, unspecified site; J45.909 Unspecified asthma, uncomplicated; M10.9 Gout, unspecified; K21.9 Gastro-esophageal reflux disease without esophagitis; K85.80 Other acute pancreatitis without necrosis or infection; J44.9 Chronic obstructive pulmonary disease, unspecified; F10.10 Alcohol abuse, uncomplicated; E83.39 Other disorders of phosphorus metabolism; Z87.442 Personal history of urinary calculi; Z82.49 Family history of ischemic heart disease and other diseases of the circulatory system; Z87.891 Personal history of nicotine dependence; E87.6 Hypokalemia; Z71.41 Alcohol abuse counseling and surveillance of alcoholic
CPT/HCPCS: 36415; 71010; 74176; 76705; 80048; 80053; 80074; 81001; 83690; 83735; 84100; 84484; 85025; 93005; 93010; 96374; C9113; J1650; J2270; J7040; J7042